=== PATIENT | female | born 1975 | race Caucasian/White ===

== ENCOUNTER → 2018-08-24 14:56 | Outpatient (CLI) | payer OTHER, SELFPAY ==
--- NOTE | 2018-08-24 | DI.RAD.S_ITS ---
PROCEDURE: XR CERVICAL SPINE 2V OR 3V INDICATIONS: Other specified arthritis, unspecified site TECHNIQUE: 3 view(s) of the cervical spine were acquired. COMPARISON: None. FINDINGS: Bones: There is straightening of normal cervical lordosis. No acute compression fracture or joint spondylolisthesis. Vertebral body heights are well-preserved. Degenerative endplate changes and bilateral facet hypertrophic changes are noted at C4-5 to C6-7 levels. The lateral masses of C1 appear intact on the odontoid view. No suspicious bony lesions. Soft tissues: No prevertebral soft tissue swelling. IMPRESSION: Degenerative disc disease in mid to lower cervical spine. No compression fracture or spondylolisthesis. Dictated by: Jay Newell M.D. on 08/24/2018 at 16:10 Approved by: Jay Newell M.D. on 08/24/2018 at 16:11
== END ==
PROVIDERS: Visit Provider Orthopaedic Surgery
DX: M50.321 Other cervical disc degeneration at C4-C5 level (principal)
CPT/HCPCS: 72040